=== PATIENT | female | born 1965 | race Caucasian/White ===

== ENCOUNTER 2020-04-18 09:56 | Observation (INO) | payer BC ==
[~2020-04-18] VITALS: Ht 160 cm; Wt 115.2 kg
[~2020-04-18 09:56] MED LIST: BENAML20/5 PO; HYDCHL25 PO; NAPR220 PO; OTC PAIN MEDS; OXYACE5T PO; [UNRECOGNIZED DRUG - REMARK]
[2020-04-18 10:50] LABS: BASOPHILS ABSOLUTE AUTO 0.07 K/mm3 (0.00-0.23); BASOPHILS PERCENT AUTO 1 % (0-2); EOSINOPHILS ABSOLUTE AUTO 0.27 K/mm3 (0.00-0.68); EOSINOPHILS PERCENT AUTO 3 % (0-6); Hematocrit 46.4 % (33.0-51.0); Hemoglobin 15.5 g/dL (11.5-16.0); IMMATURE GRAN ABSOLUTE AUTO 0.02 K/mm3 (0.00-0.10); IMMATURE GRAN PERCENT AUTO 0 % (0-1); LYMPHOCYTES ABSOLUTE AUTO 2.29 K/mm3 (0.84-5.20); LYMPHOCYTES PERCENT AUTO 24 % (21-46); MONOCYTES ABSOLUTE AUTO 0.73 K/mm3 (0.16-1.47); MONOCYTES PERCENT AUTO 8 % (4-13); Mean Corpuscular HGB 29.1 pg (26.0-34.0); Mean Corpuscular HGB Conc 33.4 g/dL (31.5-36.5); Mean Corpuscular Volume 87 fL (80-100); Mean Platelet Volume 10.3 fL (9.1-12.4); NEUTROPHILS PERCENT AUTO 65 % (41-73); Platelet Count 228 K/mm3 (150-400); RDW Coefficient Variation 11.8 % (11.7-14.2); RDW Standard Deviation 37.5 fL (35.1-46.3); Red Blood Cell Count 5.33 M/mm3 (3.80-5.20); White Blood Cell Count 9.58 K/mm3 (4.00-11.30)
[2020-04-18 11:09] LABS: Alanine Aminotransfer (ALT/SGP 45 U/L (12-78); Albumin, Blood 3.3 g/dL (3.4-5.0); Albumin/Globulin Ratio 0.9 (0.8-1.8); Alk Phos 68 U/L (50-136); Anion Gap 6 mmol/L (6-16); Aspartate Aminotrans (AST/SGOT 22 U/L (12-37); Bilirubin, Total 0.4 mg/dL (0.1-1.0); Blood Urea Nitrogen 25 mg/dL (8-24); Bun/Creatinine Ratio 28.2 (12.0-20.0); CO2, Blood 30 mmol/L (21-32); Calcium, Blood 9.2 mg/dL (8.5-10.1); Chloride, Blood 107 mmol/L (98-108); Creatinine, Blood 0.89 mg/dL (0.40-1.00); Globulin, Blood 3.5 g/dL (2.2-4.0); Glomerular Filtration Rate >60 (60-); Glucose, Blood 93 mg/dL (70-99); Potassium, Blood 3.1 mmol/L (3.5-5.5); Sodium, Blood 143 mmol/L (136-145); Total Protein, Blood 6.8 g/dL (6.4-8.2); Troponin I 0.134 ng/mL (0.000-0.040)
[2020-04-18 14:06] LABS: Source, Urine Clean Catch
[2020-04-18 14:11] LABS: Appearance, Urine Clear (Clear); Bilirubin, Urine Neg (Neg); Blood, Urine 3+ (Neg); Color, Urine Yellow (P-Yellow); Glucose Qualitative, Urine Neg (Neg); Ketones, Urine Neg (Neg); Leukocyte Esterase, Urine Neg (Neg); Nitrite, Urine Neg (Neg); Protein, Urine 4+ (Neg); Specific Gravity, Urine 1.015 (1.003-1.022); Urobilinogen, Urine NORM (Normal)
[2020-04-18 14:18] LABS: Bacteria Not Seen /hpf; Squamous Epithelial Cells Rare /hpf (Few); White Blood Cells, Urine 0-2 /hpf (0-5)
[2020-04-18 14:24] LABS: U Amphetamine Screen DETECTED; U Barbituate Screen Not Detected; U Benzodiazapine Screen Not Detected; U Buprenorphine Screen Not Detected; U Cannabinoids Screen Not Detected; U Cocaine Screen Not Detected; U Methadone Screen Not Detected; U Methamphetamine Screen DETECTED; U Opiates Screen Not Detected; U Oxycodone Screen Not Detected; U Phencyclidine Screen Not Detected; U Propoxyphene Screen Not Detected
--- NOTE | 2020-04-18 15:26 | NUR ---
Echocardiogram completed.
--- NOTE | 2020-04-19 00:10 | NUR ---
ELEVATED BLOOD PRESSURE DR LEON NOTIFIED OF PATIENT HIGH BLOOD PRESSURE. ORDERS RECIEVED.
[2020-04-19 04:37] LABS: Anion Gap 6 mmol/L (6-16); Blood Urea Nitrogen 31 mg/dL (8-24); Bun/Creatinine Ratio 27.9 (12.0-20.0); CHOL/HDL RATIO 3.5; CO2, Blood 28 mmol/L (21-32); Calcium, Blood 8.8 mg/dL (8.5-10.1); Chloride, Blood 110 mmol/L (98-108); Cholesterol 212 mg/dL (50-200); Creatinine, Blood 1.11 mg/dL (0.40-1.00); Glomerular Filtration Rate 55 (60-); Glucose, Blood 89 mg/dL (70-99); HDL Cholesterol 60 mg/dL (>39); LDL/HDL RATIO 2.1; Low Density Lipoprotein Chol 126 mg/dL (0-110); Magnesium, Blood 2.3 mg/dL (1.6-2.4); Potassium, Blood 3.8 mmol/L (3.5-5.5); Sodium, Blood 144 mmol/L (136-145); Triglycerides 128 mg/dL (30-160); Very Low Density Lipoprot Chol 25 mg/dL (6-32)
--- NOTE | 2020-04-19 06:28 | NUR ---
SHIFT SUMMARY PATIENT PLEASENT AND COOPERATIVE THROUGHOUT THE NIGHT. PATIENT APPEARED TO SLEEP WELL LAST NIGHT WITH NO COMPLAINTS OF PAIN. PATIENT INDEPENDENT IN ROOM. PATIENT MEDICATED FOR HIGH BLOOD PRESSURE PER EMAR. VITALS CHARTED. PATIENT CURRENTLY APPEARS TO BE ASLEEP, RESPIRATIONS EVEN AND UNLABORED. WILL CONTINUE CURRENT PLAN OF CARE.
--- NOTE | 2020-04-19 18:02 | NUR ---
SHIFT NOTE PT INDEPENTANT IN THE ROOM T/O THE DAY. HTN NOTED THIS EVENING, PT WAS MEDCIATED WITH EVENING WITH BP MEDS, WILL ASK NOC SHIFT TO REASSESS BP AT SHIFT CHANGE. PT DENIES CP OR SOB. SKIN PWD AND INTACT. PT HAS BEEN SLEEPING ON AND OFF T/O THE DAY, AND RESTING WELL. SOME ANXIETY NOTED BUT IS RESOLVED WITH EDUCATION
--- NOTE | 2020-04-20 06:24 | NUR ---
PT A&Ox4. NO ACUTE RESP DISTRESS OBSERVED. HTN 161/85-187/88 THROUGHOUT SHIFT. MEDICATED WITH PRN ORDERED, BP NOT VERY RESPONSIVE TO HYDRALIZINE. PT ALSO VERY ANXIOUS AT TIMES, EMOTIONAL SUPPORT GIVEN NEEDED. PT AMBULATES TO BATHROOM, STEADY ON FEET. WILL CONTINUE TO MONITOR
--- NOTE | 2020-04-20 07:46 | NUR ---
CARE ASSUMED REPORT RECEIVED, CARE ASSUMED AT 0700 FROM TAYLOR LLOYD. UPON ASSESSMENT, PT'S BP ELEVATED. AM COREG GIVEN AND WILL REASSESS. OTHERWISE, VITALS STABLE. PT DENIES CHEST PAIN/PRESSURE. PT UP TO BATHROOM WITH STANDBY ASSIST. STEADY ON FEET, AWARE OF SURROUNDINGS. PT ANXIOUS, TEARFUL ABOUT CONTINUED ELEVATED BLOOD PRESSURE. PROVIDED WITH REASSURANCE REGARDING PLAN TO REASSESS AND SPEAK WITH MD REGARDING PLAN OF CARE FOR HYPERTENSION. PT REPORTS FEELING BETTER AFTER TALKING ABOUT PLAN. SEE FULL SHIFT ASSESSMENT. PT AGREEABLE TO CALL FOR STAND BY ASSIST TO BATHROOM FOR SAFETY. PT LEFT WITH CALL LIGHT IN REACH, DECLINES FURTHER NEEDS AT THIS TIME.
[2020-04-20 09:24] LABS: Albumin, Blood 2.8 g/dL (3.4-5.0); Anion Gap 6 mmol/L (6-16); Blood Urea Nitrogen 27 mg/dL (8-24); Bun/Creatinine Ratio 29.9 (12.0-20.0); CO2, Blood 25 mmol/L (21-32); Calcium, Blood 8.7 mg/dL (8.5-10.1); Chloride, Blood 110 mmol/L (98-108); Glomerular Filtration Rate >60 (60-); Glucose, Blood 167 mg/dL (70-99); Phosphorus, Blood 2.4 mg/dL (2.5-4.9); Sodium, Blood 141 mmol/L (136-145)
--- NOTE | 2020-04-20 10:49 | NUR ---
DR. OQUENDO AT BEDSIDE DURING REPEAT VITALS ASSESSMENT. DISCUSSED BLOOD PRESSURE. NEW MEDICATIONS PER ORDERS.
--- NOTE | 2020-04-20 14:57 | NUR ---
UPDATE SPOKE WITH DR. BRAUN REGARDING PT'S VITAL SIGNS TREND. ALSO DISCUSSED PT'S WISHES TO NOT RECIEVE HYDRALAZINE SHE EXPLAINS THAT IT MAKES HER FEEL TERRIBLE. PT UNABLE TO ARTICULATE SPECIFICALLY HOW IT MAKES HER FEEL TERRIBLE. PER DR. BRAUN, OK NOT TO GIVE HYDRALAZINE WITH CURRENT BLOOD PRESSURE BUT ALSO SHE WILL REASSESS MEDICATIONS AND CONSIDER ADDITIONAL DIURETIC TO PT'S MEDICATION REGIME. PT UPDATED ON PLAN OF CARE AND AGREEABLE.
--- NOTE | 2020-04-20 18:34 | NUR ---
SUMMARY SEE PREVIOUS NOTES, ORDERS AND DOCUMENTATION FOR CHANGES THROUGHOUT SHIFT. SINCE MOST RECENT NOTE, PT'S BLOOD PRESSURE HAS IMPROVED. DAUGHTER TO BEDSIDE AT DINNER TIME. PT ABLE TO TEACH BACK EDUCATION REGARDING BLOOD PRESSURE MANAGEMENT, RISK FACTORS AND MEDICATIONS. PT INDEPENDENT IN ROOM. GOOD URINE OUTPUT. CALLING APPROPRIATELY FOR NEEDS. REPORTS FEELING "MUCH BETTER."
[2020-04-21 03:47] LABS: BASOPHILS PERCENT AUTO 1 % (0-2); EOSINOPHILS ABSOLUTE AUTO 0.36 K/mm3 (0.00-0.68); EOSINOPHILS PERCENT AUTO 4 % (0-6); Hematocrit 47.4 % (33.0-51.0); Hemoglobin 15.5 g/dL (11.5-16.0); IMMATURE GRAN ABSOLUTE AUTO 0.02 K/mm3 (0.00-0.10); IMMATURE GRAN PERCENT AUTO 0 % (0-1); LYMPHOCYTES ABSOLUTE AUTO 2.76 K/mm3 (0.84-5.20); LYMPHOCYTES PERCENT AUTO 29 % (21-46); MONOCYTES PERCENT AUTO 7 % (4-13); Mean Corpuscular HGB 29.2 pg (26.0-34.0); Mean Corpuscular HGB Conc 32.7 g/dL (31.5-36.5); Mean Corpuscular Volume 89 fL (80-100); Mean Platelet Volume 10.3 fL (9.1-12.4); NEUTROPHILS ABSOLUTE AUTO 5.75 K/mm3 (1.96-9.15); NEUTROPHILS PERCENT AUTO 59 % (41-73); Platelet Count 252 K/mm3 (150-400); Red Blood Cell Count 5.31 M/mm3 (3.80-5.20); White Blood Cell Count 9.69 K/mm3 (4.00-11.30)
[2020-04-21 04:06] LABS: Anion Gap 5 mmol/L (6-16); Blood Urea Nitrogen 26 mg/dL (8-24); Bun/Creatinine Ratio 26.9 (12.0-20.0); CO2, Blood 30 mmol/L (21-32); Calcium, Blood 8.8 mg/dL (8.5-10.1); Chloride, Blood 106 mmol/L (98-108); Creatinine, Blood 0.97 mg/dL (0.40-1.00); Glomerular Filtration Rate >60 (60-); Glucose, Blood 99 mg/dL (70-99); Potassium, Blood 3.6 mmol/L (3.5-5.5); Sodium, Blood 141 mmol/L (136-145)
--- NOTE | 2020-04-21 06:54 | NUR ---
PT A&O. NO RESPIRATORY DISTRESS, SATS >94% TELE SR IN 70s. DENIED CHEST PAIN/PRESSURE. SLEPT WELL THROUGH NIGHT, NO S/S ANXIETY
--- NOTE | 2020-04-21 07:15 | NUR ---
ASSUMED CARE: PT AWAKE AND TALKING TO STAFF. NSR ON TELE. DENIES NEEDS OR CONCERNS AT THIS TIME. HOPING TO BE DC'D TODAY.
[2020-04-21] MEDS ORDERED: ASPI81CH PO (12:36)
[2020-04-21] MEDS ORDERED: CARV25 PO (12:37)
[2020-04-21] MEDS ORDERED: FURO20 PO (12:37)
[2020-04-21] MEDS ORDERED: HYDCHL25 PO (12:38)
[2020-04-21] MEDS ORDERED: NIFE90ER PO (12:39)
--- NOTE | 2020-04-21 13:41 | NUR ---
PT GIVEN DC INSTRUCTIONS REGARDING MEDS AND FOLLOW UP APPOINTMENTS. IV DC'D WNL. PT DENIED FURTHER QUESTIONS OR CONCERNS. AMBULATORY UPON DISCHARGE AND ESCORTED OUT BY SILK FOLDER TO EXIT.
== END 2020-04-21 13:13 | disposition home or self-care (01) ==
LOC: ER 09:56 → PCU 09:57 → ERHOLD 09:57 → PCU 18:12
PROVIDERS: Emergency Medicine; Internal Medicine; Nurse Practitioner Acute Care; Student in an Organized Health Care Education/Training Program; ADMIT Family Medicine
DX: I16.0 Hypertensive urgency (principal); I11.0 Hypertensive heart disease with heart failure; I50.31 Acute diastolic (congestive) heart failure; R77.8 Other specified abnormalities of plasma proteins; I34.0 Nonrheumatic mitral (valve) insufficiency; E87.6 Hypokalemia; N17.9 Acute kidney failure, unspecified; F15.10 Other stimulant abuse, uncomplicated; E66.01 Morbid (severe) obesity due to excess calories; Z68.41 Body mass index [BMI] 40.0-44.9, adult; Z88.6 Allergy status to analgesic agent; Z91.14 Patient's other noncompliance with medication regimen
CPT/HCPCS: 36415; 71045; 80048; 80053; 80061; 80069; 81001; 83036; 83735; 83880; 84484; 85025; 93005; 93010; 93306; 96365; 96366; 96367; 96375; 96376; 99285-25; A9270; G0378; J0360; J0690; J1940; J3475

== ENCOUNTER 2020-04-29 11:01 | Emergency (ER) | payer BC ==
[~2020-04-29] VITALS: Ht 160 cm; Wt 90.7 kg
[~2020-04-29 11:01] MED LIST changes: +ASPI81CH PO; +CARV25 PO; +FURO20 PO; +NIFE90ER PO
== END 2020-04-29 13:06 | disposition home or self-care (01) ==
LOC: ER 11:01
DX: H53.9 Unspecified visual disturbance (principal); I10 Essential (primary) hypertension; Z79.82 Long term (current) use of aspirin; Z79.899 Other long term (current) drug therapy
CPT/HCPCS: 70450; 99284-25

== ENCOUNTER → 2020-10-16 | Outpatient (CLI) | payer BC ==
[2020-10-20 11:08] LABS: HPV 16 Negative (Negative); HPV 18 Negative (Negative); HPV OTHER HR TYPES Negative (Negative)
== END ==
LOC: LAB 14:41 → LAB SHORT 14:41
PROVIDERS: Student in an Organized Health Care Education/Training Program
DX: Z01.419 Encounter for gynecological examination (general) (routine) without abnormal findings (principal)
CPT/HCPCS: 87624; G0123

== ENCOUNTER → 2021-01-16 | Outpatient (CLI) | payer BC ==
[2021-01-16 14:04] LABS: Creatinine Urine 66.6 mg/dL (27.00-270.00); Protein, Urine Quantitative 34.1 mg/dL (0.0-11.9)
== END | disposition home or self-care (01) ==
LOC: LAB 07:45 → LAB SHORT 07:45 → LAB FUT 01-15 09:40
PROVIDERS: Internal Medicine Nephrology
DX: N18.30 Chronic kidney disease, stage 3 unspecified (principal); D63.1 Anemia in chronic kidney disease; N25.81 Secondary hyperparathyroidism of renal origin; E78.00 Pure hypercholesterolemia, unspecified; E55.9 Vitamin D deficiency, unspecified; D50.9 Iron deficiency anemia, unspecified; D51.8 Other vitamin B12 deficiency anemias; D52.8 Other folate deficiency anemias; R76.9 Abnormal immunological finding in serum, unspecified; R94.5 Abnormal results of liver function studies; R94.6 Abnormal results of thyroid function studies
CPT/HCPCS: 81050; 82043; 82570; 84156

== ENCOUNTER 2021-04-03 11:54 | Emergency (ER) | payer BC ==
[~2021-04-03] VITALS: Ht 160 cm; Wt 99.8 kg
[2021-04-03 13:09] LABS: BASOPHILS PERCENT AUTO 1 % (0-2); EOSINOPHILS ABSOLUTE AUTO 0.11 K/mm3 (0.00-0.68); EOSINOPHILS PERCENT AUTO 1 % (0-6); Hematocrit 41.1 % (33.0-51.0); Hemoglobin 14.1 g/dL (11.5-16.0); IMMATURE GRAN ABSOLUTE AUTO 0.03 K/mm3 (0.00-0.10); IMMATURE GRAN PERCENT AUTO 0 % (0-1); LYMPHOCYTES ABSOLUTE AUTO 1.74 K/mm3 (0.84-5.20); LYMPHOCYTES PERCENT AUTO 14 % (21-46); MONOCYTES ABSOLUTE AUTO 0.61 K/mm3 (0.16-1.47); MONOCYTES PERCENT AUTO 5 % (4-13); Mean Corpuscular HGB 29.7 pg (26.0-34.0); Mean Corpuscular HGB Conc 34.3 g/dL (31.5-36.5); Mean Corpuscular Volume 87 fL (80-100); Mean Platelet Volume 10.4 fL (9.1-12.4); NEUTROPHILS ABSOLUTE AUTO 10.28 K/mm3 (1.96-9.15); NEUTROPHILS PERCENT AUTO 80 % (41-73); Platelet Count 390 K/mm3 (150-400); RDW Coefficient Variation 11.5 % (11.7-14.2); RDW Standard Deviation 36.9 fL (35.1-46.3); Red Blood Cell Count 4.74 M/mm3 (3.80-5.20); White Blood Cell Count 12.87 K/mm3 (4.00-11.30)
[2021-04-03 13:20] LABS: Albumin/Globulin Ratio 1.1 (0.8-1.8); Bilirubin, Total 0.7 mg/dL (0.1-1.0); Bun/Creatinine Ratio 25.6 (12.0-20.0); Calcium, Blood 9.9 mg/dL (8.5-10.1); Creatinine, Blood 2.42 mg/dL (0.40-1.00); Globulin, Blood 3.6 g/dL (2.2-4.0); Total Protein, Blood 7.6 g/dL (6.4-8.2)
[2021-04-03] MEDS ORDERED: ATOR20 PO (14:04)
[2021-04-03] MEDS ORDERED: Budeprion Xl300 MG PO (14:06)
[2021-04-03] MEDS ORDERED: Prinivil10 MG PO (14:06)
[2021-04-03 14:44] LABS: Source, Urine Clean Catch
[2021-04-03 15:02] LABS: Appearance, Urine Hazy (Clear); Bilirubin, Urine Neg (Neg); Blood, Urine 1+ (Neg); Glucose Qualitative, Urine Neg (Neg); Ketones, Urine Neg (Neg); Leukocyte Esterase, Urine Neg (Neg); Nitrite, Urine Neg (Neg); Protein, Urine 2+ (Neg); Specific Gravity, Urine 1.015 (1.003-1.022); Urobilinogen, Urine NORM (Normal)
[2021-04-03 15:27] LABS: Color, Urine Pale Yellow (P-Yellow)
[2021-04-03 15:28] LABS: Bacteria Many /hpf; Red Blood Cells, Urine Rare /hpf (0-2); Squamous Epithelial Cells Mod /hpf (Few)
[2021-04-03 16:45] LABS: Calcium, Ionized (POC) 1.09 mmol/L (1.10-1.46); Chloride (POC) 105 mmol/L (98-108); Creatinine (POC) 2.1 mg/dL (0.6-1.0); Glucose (ISTAT POC) 126 mg/dL (70-99); Hemoglobin (POC) 14.3 g/dL (12.0-16.0); Potassium (POC) 3.3 mmol/L (3.5-5.5); Sodium (POC) 142 mmol/L (135-148); Total CO2 (POC) 21 mmol/L (21-32)
[2021-04-03] MEDS ORDERED: Norco 5-325 Ta1 EACH PO (17:17)
[2021-04-03] MEDS ORDERED: HYDR1TAB94 PO (17:19)
== END 2021-04-03 17:25 | disposition home or self-care (01) ==
LOC: ER 11:54
PROVIDERS: Physician Assistant
DX: N20.1 Calculus of ureter (principal); N17.9 Acute kidney failure, unspecified; D72.829 Elevated white blood cell count, unspecified; I13.0 Hypertensive heart and chronic kidney disease with heart failure and stage 1 through stage 4 chronic kidney disease, or unspecified chronic kidney disease; I50.9 Heart failure, unspecified; N18.9 Chronic kidney disease, unspecified; E78.5 Hyperlipidemia, unspecified; Z79.899 Other long term (current) drug therapy
CPT/HCPCS: 74176; 80047; 80053; 81001; 83690; 85014; 85025; 87077; 87086; 87186; J7030

== ENCOUNTER 2023-01-17 13:44 | Emergency (ER) | payer BC ==
[~2023-01-17] VITALS: Ht 160 cm; Wt 113.4 kg
[~2023-01-17 13:44] MED LIST changes: +ATOR20 PO; +Budeprion Xl300 MG PO; +HYDR1TAB94 PO; +Norco 5-325 Ta1 EACH PO; +Prinivil10 MG PO
[2023-01-17 14:17] LABS: BASOPHILS PERCENT AUTO 1 % (0-2); EOSINOPHILS PERCENT AUTO 5 % (0-6); Hematocrit 40.1 % (33.0-51.0); Hemoglobin 13.6 g/dL (11.5-16.0); IMMATURE GRAN ABSOLUTE AUTO 0.04 K/mm3 (0.00-0.10); IMMATURE GRAN PERCENT AUTO 0 % (0-1); LYMPHOCYTES ABSOLUTE AUTO 2.36 K/mm3 (0.84-5.20); LYMPHOCYTES PERCENT AUTO 23 % (21-46); MONOCYTES ABSOLUTE AUTO 0.61 K/mm3 (0.16-1.47); MONOCYTES PERCENT AUTO 6 % (4-13); Mean Corpuscular HGB 29.8 pg (26.0-34.0); Mean Corpuscular HGB Conc 33.9 g/dL (31.5-36.5); Mean Corpuscular Volume 88 fL (80-100); Mean Platelet Volume 10.4 fL (9.1-12.4); NEUTROPHILS PERCENT AUTO 65 % (41-73); Platelet Count 250 K/mm3 (150-400); RDW Coefficient Variation 11.6 % (11.7-14.2); RDW Standard Deviation 37.4 fL (35.1-46.3); Red Blood Cell Count 4.56 M/mm3 (3.80-5.20); White Blood Cell Count 10.31 K/mm3 (4.00-11.30)
[2023-01-17 14:41] LABS: Albumin, Blood 3.8 g/dL (3.4-5.0); Albumin/Globulin Ratio 1.1 (0.8-1.8); Bilirubin, Total 0.3 mg/dL (0.1-1.0); Bun/Creatinine Ratio 25.7 (12.0-20.0); Calcium, Blood 9.8 mg/dL (8.5-10.1); Creatinine, Blood 1.48 mg/dL (0.40-1.00); Globulin, Blood 3.6 g/dL (2.2-4.0); Potassium, Blood 3.5 mmol/L (3.5-5.5); Total Protein, Blood 7.4 g/dL (6.4-8.2)
[2023-01-17 17:30] VITALS: BP 118/74
== END 2023-01-17 17:30 | disposition home or self-care (01) ==
LOC: ER 13:44
PROVIDERS: Student in an Organized Health Care Education/Training Program
DX: R06.00 Dyspnea, unspecified (principal); I13.0 Hypertensive heart and chronic kidney disease with heart failure and stage 1 through stage 4 chronic kidney disease, or unspecified chronic kidney disease; I50.9 Heart failure, unspecified; N18.9 Chronic kidney disease, unspecified; R00.0 Tachycardia, unspecified; E78.5 Hyperlipidemia, unspecified; Z79.899 Other long term (current) drug therapy
CPT/HCPCS: 71046; 80053; 83880; 84484; 85025; 85379; 93005; 93010; 93306; 99285-25

== ENCOUNTER 2023-12-16 14:41 | Inpatient (IN) | payer BC ==
[~2023-12-16] VITALS: Ht 160 cm; Wt 101.0 kg
[2023-12-16] VITALS (9 sets, daily range): BP systolic 119–142; BP diastolic 98–116
[~2023-12-16 14:41] MED LIST changes: +LISI20 PO; -Prinivil10 MG PO
[2023-12-16] MEDS ORDERED: Aspirin 325 MG Tab ONE (15:02)
[2023-12-16 15:18] LABS: Calcium, Ionized (POC) 1.18 mmol/L (1.10-1.46); Chloride (POC) 102 mmol/L (98-108); Creatinine (POC) 1.4 mg/dL (0.6-1.0); Glucose (ISTAT POC) 102 mg/dL (70-99); Hemoglobin (POC) 13.9 g/dL (12.0-16.0); Potassium (POC) 3.1 mmol/L (3.5-5.5); Sodium (POC) 139 mmol/L (135-148); Total CO2 (POC) 24 mmol/L (21-32)
[2023-12-16] MEDS ORDERED: Aspirin 325 MG Tab PO ONE (15:20)
[2023-12-16 15:58] LABS: BASOPHILS ABSOLUTE AUTO 0.12 K/mm3 (0.00-0.23); BASOPHILS PERCENT AUTO 1 % (0-2); EOSINOPHILS PERCENT AUTO 3 % (0-6); Hematocrit 41.8 % (33.0-51.0); Hemoglobin 14.5 g/dL (11.5-16.0); IMMATURE GRAN ABSOLUTE AUTO 0.02 K/mm3 (0.00-0.10); IMMATURE GRAN PERCENT AUTO 0 % (0-1); LYMPHOCYTES PERCENT AUTO 33 % (21-46); MONOCYTES ABSOLUTE AUTO 0.93 K/mm3 (0.16-1.47); MONOCYTES PERCENT AUTO 9 % (4-13); Mean Corpuscular HGB 29.8 pg (26.0-34.0); Mean Corpuscular HGB Conc 34.7 g/dL (31.5-36.5); Mean Corpuscular Volume 86 fL (80-100); Mean Platelet Volume 10.8 fL (9.1-12.4); NEUTROPHILS PERCENT AUTO 55 % (41-73); Platelet Count 293 K/mm3 (150-400); RDW Coefficient Variation 11.4 % (11.7-14.2); RDW Standard Deviation 35.9 fL (35.1-46.3); Red Blood Cell Count 4.87 M/mm3 (3.80-5.20); White Blood Cell Count 10.77 K/mm3 (4.00-11.30)
[2023-12-16 16:04] LABS: Albumin, Blood 3.9 g/dL (3.4-5.0); Albumin/Globulin Ratio 1.1 (0.8-1.8); Bilirubin, Total 0.4 mg/dL (0.1-1.0); Bun/Creatinine Ratio 30.1 (12.0-20.0); Calcium, Blood 9.3 mg/dL (8.5-10.1); Creatinine, Blood 1.33 mg/dL (0.40-1.00); Globulin, Blood 3.4 g/dL (2.2-4.0); Potassium, Blood 3.1 mmol/L (3.5-5.5); Total Protein, Blood 7.3 g/dL (6.4-8.2)
[2023-12-16] MEDS ORDERED: Ondansetron HCl 2 MG / ML 2ML Vial IV PRN (18:20)
[2023-12-16] MEDS ORDERED: Acetaminophen 325 MG TABLET PO PRN (18:20)
[2023-12-16] MEDS ORDERED: FLU VACC TS2024-25(6MOS UP)/PF 45 MCG/0.5 ML SYRINGE IM ONE (18:20)
[2023-12-16] MEDS ORDERED: Potassium Chloride 20 MEQ TabCR PO ONE (19:00)
[2023-12-16] MEDS ORDERED: Magnesium Sulf 2 GM/Water 50ML 50 ML IV STA (20:18)
[2023-12-16] MEDS ORDERED: Metoprolol Tartrate 1 MG/ML 5 ML VIAL IV STA (20:28)
[2023-12-16] MEDS ORDERED: NS 1,000 ML IV SCH (20:40)
[2023-12-16 20:49] LABS: Magnesium, Blood 1.6 mg/dL (1.6-2.4)
[2023-12-16 20:50] LABS: Thyroid Stimulating Hormone 1.39 uIU/mL (0.360-4.800)
[2023-12-16] MEDS ORDERED: Carvedilol 25 MG Tab PO ONE (21:00)
[2023-12-16] MEDS ORDERED: NIFEdipine 90 MG TabCR PO SCH (21:00)
[2023-12-16] MEDS ORDERED: Potassium Chl 20MEQ/Water100ML 100 ML IV SCH (21:00)
--- NOTE | 2023-12-16 22:15 | NUR ---
CALL TO DR RINCON TO PT CONTINUING VTAC. INSTRUCTED TO CALL [employer] MAINTENANCE ELECTRICIAN. NOTIFIED MOOSE VAZQUEZIT SUPPORT ANALYST NURSE, WILL CALL CARDS. PT IS ALERT AND ORIENTED AND REPORTS FEELING "PRESSURE" IN CHEST DURING THESE EPISODES. SHE DENIES DIZZINESS OR WEAKNESS. SHE IS TALKING ON THE PHONE TO FAMILY MEMBERS. BP IS STABLE AT THIS TIME. SHE IS ON ROOM AIR, OXYGEN SAT 99%
--- NOTE | 2023-12-16 22:20 | NUR ---
CALL TO MD RE: VTACH DR. MCCARTHY NOTIFIED OF CONTINUED AND INCREASING RUNS OF VTACH. DISCUSSED PLAN OF CARE WITH MD- CONTINUE AMIODARONE GTT AT THIS TIME. GOAL IS TO KEEP MAGNESIUM >2 AND POTASSIUM >4.
[2023-12-16 22:27] LABS: Anti-Xa UFH, PHA Monitoring <0.10 IU/mL; International Normalized Ratio 1.05; Prothrombin Time Results 11.2 Sec (9.7-11.5)
[2023-12-16] MEDS ORDERED: Heparin Sodium,Porcine/0.5 NS 500 ML IV SCH (22:55)
[2023-12-16] MEDS ORDERED: Heparin Sodium 5000 Units/ML 1ML MDV IV ONE (22:55)
[2023-12-17] VITALS (34 sets, daily range): BP systolic 87–147; BP diastolic 52–102
[2023-12-17 00:30] LABS: U Amphetamine Screen Not Detected; U Barbituate Screen Not Detected; U Benzodiazapine Screen Not Detected; U Buprenorphine Screen Not Detected; U Cannabinoids Screen Not Detected; U Cocaine Screen Not Detected; U Methadone Screen Not Detected; U Methamphetamine Screen Not Detected; U Opiates Screen Not Detected; U Oxycodone Screen Not Detected; U Phencyclidine Screen Not Detected
[2023-12-17 02:41] LABS: Bun/Creatinine Ratio 30.2 (12.0-20.0); Calcium, Blood 9.6 mg/dL (8.5-10.1); Creatinine, Blood 1.06 mg/dL (0.40-1.00); Magnesium, Blood 2.1 mg/dL (1.6-2.4); Potassium, Blood 3.6 mmol/L (3.5-5.5)
--- NOTE | 2023-12-17 03:00 | NUR ---
PT CONVERTED TO SINUS BRADYCARDIA IN THE 50S. BP WNL.
[2023-12-17] MEDS ORDERED: Potassium Chl 20MEQ/Water100ML 100 ML IV SCH (04:05)
--- NOTE | 2023-12-17 06:05 | NUR ---
SHIFT SUMMERY PT ARRIVED FROM ER TO ICU15 2141 LAST NIGHT. PT HAS BEEN ALERT AND ORIENTED THROUGHOUT THE SHIFT. SHE HAS BEEN ON AN AMIODARONE GTT PER MD ORDER. SHE WAS HAVING FREQUENT RUNS OF VTACH W/BIGEMINY AND TRIGEMINY. PT WAS ASYMPTOMATIC OTHER THAN SOME CHEST PRESSURE. PT WAS ALSO STARTED ON A HEPARIN DRIP. SHE ALSO HAD REPLACEMENTS OF POTASSIUM OF MAGNESIUM. SHE HAS BEEN NPO. BP HAS BEEN WNL. SHE CONVERTED TO SINUS DENISSE AT 0300. DR RINCON WAS NOTIFIED. PT REPORTS FEELING MUCH BETTER SINCE CONVERTING.
[2023-12-17 06:13] LABS: Bun/Creatinine Ratio 28.3 (12.0-20.0); Calcium, Blood 9.8 mg/dL (8.5-10.1); Creatinine, Blood 1.06 mg/dL (0.40-1.00); Potassium, Blood 4.1 mmol/L (3.5-5.5)
[2023-12-17] MEDS ORDERED: Clarify Drug Order XX ONE (06:15)
[2023-12-17] MEDS ORDERED: Carvedilol 25 MG Tab PO SCH (08:00)
[2023-12-17] MEDS ORDERED: AMIODARONE HCL 50 MG/ML IV ONE (08:41)
[2023-12-17] MEDS ORDERED: Furosemide 20 MG Tab PO SCH (09:00)
[2023-12-17] MEDS ORDERED: Aspirin 81 MG Chew PO SCH (09:00)
[2023-12-17] MEDS ORDERED: Enoxaparin 40 MG/0.4 ML SYR SC SCH (09:00)
[2023-12-17] MEDS ORDERED: HydroCHLOROthiazide 25 mg Tab PO SCH (09:00)
--- NOTE | 2023-12-17 12:10 | NUR ---
REASSESSMENT PT CONTINUES IN SINUS DENISSE RHYTHM WITH RATE IN THE UPPER 50S, BP STABLE. DENIES ANY CHEST PAIN OR DIZZINESS. HAS BEEN UP TO THE BR TWICE WITHOUT ANY SYMPTOMS. LUNGS CLEAR, RA. MAP 87. SPOKE WITH DR. ARENAS TO CONFIRM THAT CARDIOLOGY KNEW OF CONSULT.
[2023-12-17] MEDS ORDERED: Dose Adjust by Pharmacy XX STA (12:42)
[2023-12-17] MEDS ORDERED: Aspirin 325 MG Tab PO ONE (14:00)
[2023-12-17] MEDS ORDERED: NS 250 ML IV ONE (14:04)
[2023-12-17] MEDS ORDERED: FentaNYL Citrate 50 MCG/ML 2 ML Injection ONE (14:04)
[2023-12-17] MEDS ORDERED: Verapamil HCL 2.5 MG/ML 2ML Injection ONE (14:04)
[2023-12-17] MEDS ORDERED: Heparin Sodium 1000 Units/ML 10ML MDV ONE ×2 (14:04→14:58)
[2023-12-17] MEDS ORDERED: NS 2,000 ML IV ONE (14:04)
[2023-12-17] MEDS ORDERED: Midazolam HCl 1MG / ML 2ML Vial ONE (14:04)
[2023-12-17] MEDS ORDERED: Nitroglycerin 2 MG/20 ML BTL ONE (14:05)
[2023-12-17] MEDS ORDERED: NS 500 ML IV ONE (14:27)
--- NOTE | 2023-12-17 16:07 | NUR ---
PT BACK FROM PAI GOW MANAGER. R TR BAND IN PLACE. SITE IS C/D/I, NO SIGNS OF HEMATOMA. PT IS ALERT AND ORIENTED, DENIES PAIN. PT GIVEN SNACK TO EAT. DR. HOYT CAME BY AND GAVE OK FOR PT TO BE PCU STATUS. GAVE INSTRUCTIONS TO CONTINUE AMIODARONE THROUGH THE NIGHT.
--- NOTE | 2023-12-17 17:03 | NUR ---
TRANSFER PT TRANSFERRED TO PCU 14 VIA . REPORT GIVEN TO TAYLOR LEE. ALL BELONGINGS TRANSFERRED WITH PT. PT INFORMED HER DAUGHTER OF ROOM CHANGE.
--- NOTE | 2023-12-17 17:17 | NUR ---
PT ARRIVED TO PCU 14 AT ABOUT 1700. THE PT ARRIVED VIA WC AND WAS ABLE TO AMBULATE IND TO THE BED. SHE HAS AN AMIO GTT AND NS INFUSIING PER EMAR. SHE HAS A TRBAND ON HR RIGHT WRIST W/ 12C'S IN THE BAND. HE PT DENIES ANY N/T IN DISTAL FINGERS, CAP REFILL < 3 SEC.SITE IS W/O BLEEDING OR HEMATOMA. SHE IS ON RA AND SP02 >94%. ON TELE SHE IS SB 50'S, BP STABLE. HER VITAL SIGNS ARE BEING TAKEN IN SEQUENCE FOR POST OP RECOVERY. BED IN LOW, CALL LIGHT IN REACH. SEE NOTES FOR UPDATES.
[2023-12-18 03:40] VITALS: BP 132/76
[2023-12-18 04:18] LABS: BASOPHILS ABSOLUTE AUTO 0.07 K/mm3 (0.00-0.23); BASOPHILS PERCENT AUTO 1 % (0-2); EOSINOPHILS ABSOLUTE AUTO 0.26 K/mm3 (0.00-0.68); EOSINOPHILS PERCENT AUTO 4 % (0-6); Hematocrit 39.4 % (33.0-51.0); Hemoglobin 13.3 g/dL (11.5-16.0); IMMATURE GRAN ABSOLUTE AUTO 0.01 K/mm3 (0.00-0.10); IMMATURE GRAN PERCENT AUTO 0 % (0-1); LYMPHOCYTES ABSOLUTE AUTO 2.35 K/mm3 (0.84-5.20); LYMPHOCYTES PERCENT AUTO 36 % (21-46); MONOCYTES ABSOLUTE AUTO 0.48 K/mm3 (0.16-1.47); MONOCYTES PERCENT AUTO 7 % (4-13); Mean Corpuscular HGB 29.4 pg (26.0-34.0); Mean Corpuscular HGB Conc 33.8 g/dL (31.5-36.5); Mean Corpuscular Volume 87 fL (80-100); Mean Platelet Volume 10.6 fL (9.1-12.4); NEUTROPHILS PERCENT AUTO 51 % (41-73); Platelet Count 229 K/mm3 (150-400); RDW Coefficient Variation 11.5 % (11.7-14.2); RDW Standard Deviation 37.2 fL (35.1-46.3); Red Blood Cell Count 4.52 M/mm3 (3.80-5.20); White Blood Cell Count 6.47 K/mm3 (4.00-11.30)
[2023-12-18 04:37] LABS: Alanine Aminotransfer (ALT/SGP 22 U/L (12-78); Albumin, Blood 3.3 g/dL (3.4-5.0); Albumin/Globulin Ratio 1.1 (0.8-1.8); Alk Phos 53 U/L (50-136); Anion Gap 11 mmol/L (3-11); Aspartate Aminotrans (AST/SGOT 16 U/L (12-37); Bilirubin, Total 0.4 mg/dL (0.1-1.0); Blood Urea Nitrogen 23 mg/dL (8-24); Bun/Creatinine Ratio 21.5 (12.0-20.0); CHOL/HDL RATIO 3.2; CO2, Blood 23 mmol/L (21-32); Calcium, Blood 9.2 mg/dL (8.5-10.1); Chloride, Blood 112 mmol/L (98-108); Cholesterol 161 mg/dL (50-200); Creatinine, Blood 1.07 mg/dL (0.40-1.00); Globulin, Blood 3.1 g/dL (2.2-4.0); Glomerular Filtration Rate 61 (60-); Glucose, Blood 92 mg/dL (70-99); HDL Cholesterol 51 mg/dL (>39); LDL/HDL RATIO 1.4; Low Density Lipoprotein Chol 74 mg/dL (0-110); Potassium, Blood 3.9 mmol/L (3.5-5.5); Sodium, Blood 142 mmol/L (136-145); Total Protein, Blood 6.4 g/dL (6.4-8.2); Triglycerides 181 mg/dL (30-160); Very Low Density Lipoprot Chol 36 mg/dL (6-32)
--- NOTE | 2023-12-18 05:08 | NUR ---
SHIFT SUMMARY- Uneventful night. TR band now off with tegaderm/arm board in place following angiogram with no interventions on 12/16. Patient without chest pain/SHob during the night. Some noteable BRODY requiring 2LNC while asleep due to hypoxia as low as 85%. SB in the 50s on telemetry, no ectopy no VTACH. Amiodarone gtt continued overnight per cardiology. Patient getting OOB with SBA, denies dizziness. NS infusing at 50ml/hr, good uop. Plan is to follow up with EP on discharge, PO amiodarone? No hematoma to R radial site, CMS WNL.
[2023-12-18 07:23] VITALS: BP 111/72
[2023-12-18] MEDS ORDERED: WEGOVY1.7 MG/0.7 SC (11:53)
[2023-12-18] MEDS ORDERED: ATOR40TA PO (11:55)
[2023-12-18] MEDS ORDERED: K-TAB ER20 ME1 PO (11:55)
[2023-12-18] MEDS ORDERED: Carvedilol12.5 MG PO (12:47)
[2023-12-18] MEDS ORDERED: HYDCHL25 PO (12:49)
[2023-12-18] MEDS ORDERED: KLOR-CON 1010 ME9 PO (12:51)
[2023-12-18] MEDS ORDERED: Amiodarone HCl200 MG PO (12:54)
[2023-12-18] MEDS ORDERED: ASPI81CH PO (12:54)
--- NOTE | 2023-12-18 13:43 | NUR ---
DISCHARGE: R RADIAL SITE CONTINUES TO HEAL WNL. NO ACUTE CARDIAC EVENTS OVERNIGHT. PT HAS BEEN CLEARED FOR DISCHARGE HOME. ALL IV ACCESS HAS BEEN DC'd WNL. PT DRESSES SELF. DC PAPERWORK AND INSTRUCTIONS PROVIDED AND REVIEWED, ALL QUESTIONS HAVE BEEN ANSWERED. PT DEPARTS UNIT IN NAD.
== END 2023-12-18 13:39 | disposition home or self-care (01) | DRG 287 ==
LOC: ER 14:41 → MEDS 14:42 → ICUE 14:42 → PCU 12-17 15:23 → ICUE 12-17 16:13 → PCU 12-17 17:00
PROVIDERS: Internal Medicine; Nurse Practitioner Acute Care; Physician Assistant; Student in an Organized Health Care Education/Training Program; ADMIT Hospitalist
PROC: 4A023N8 Measurement of Cardiac Sampling and Pressure, Bilateral, Percutaneous Approach (ICD-10-PCS; principal; 2023-12-17)
PROC: B2111ZZ Fluoroscopy of Multiple Coronary Arteries using Low Osmolar Contrast (ICD-10-PCS; 2023-12-17)
DX: I47.29 Other ventricular tachycardia (principal); I13.0 Hypertensive heart and chronic kidney disease with heart failure and stage 1 through stage 4 chronic kidney disease, or unspecified chronic kidney disease; I50.32 Chronic diastolic (congestive) heart failure; Z68.41 Body mass index [BMI] 40.0-44.9, adult; N18.30 Chronic kidney disease, stage 3 unspecified; F15.91 Other stimulant use, unspecified, in remission; E66.01 Morbid (severe) obesity due to excess calories; I27.20 Pulmonary hypertension, unspecified; F41.9 Anxiety disorder, unspecified; E87.6 Hypokalemia; Z28.21 Immunization not carried out because of patient refusal; E78.5 Hyperlipidemia, unspecified; I95.2 Hypotension due to drugs; T50.2X5A Adverse effect of carbonic-anhydrase inhibitors, benzothiadiazides and other diuretics, initial encounter; T46.4X5A Adverse effect of angiotensin-converting-enzyme inhibitors, initial encounter; Z98.890 Other specified postprocedural states; Z98.891 History of uterine scar from previous surgery; Z90.89 Acquired absence of other organs; Z79.899 Other long term (current) drug therapy
CPT/HCPCS: 36415; 71260; 80047; 80048; 80053; 80061; 83735; 83880; 84443; 84484; 85014; 85025; 85520; 85610; 85730; 92953; 93005; 93010; 93306; 93460; 94762; 96365; 96365-59; 96366; 96367; 96368; 96375; 96375-59; 96376-59; 99152; 99153; 99285-25; A9270; C1769; C1887; C1894; G0378; J0282; J1644; J2250; J3010; J3475; J3480; J7030; J7040; J7050; J7060; Q9967